=== PATIENT | male | born 1975 | race African-American/Black ===

== ENCOUNTER 2017-10-24 16:35 | Emergency (ER) | payer OTHER, SELFPAY ==
[~2017-10-24] VITALS: Ht 180.3 cm; Wt 81.6 kg
[~2017-10-24 16:35] MED LIST: ACYCLOVIR400 MG ORAL
[2017-10-24 16:56] VITALS: BP 111/73
[2017-10-24] MEDS ORDERED: DiphenhydrAMINE 50mg/ml Inj IVP ONE (17:00)
[2017-10-24] MEDS ORDERED: Metoclopramide 10mg/2ml Inj IVP ONE (17:00)
--- NOTE | 2017-10-24 17:05 | Emergency Room Report ---
History of Present Illness General Chief Complaint: Nausea, Vomiting, and Diarrhea Source: Patient, Medical Record Present Illness HPI The patient presents with 2 problems. One is a headache. The second one is nausea and vomiting for several days. He's not been able to eat anything for several days and is having trouble keeping down liquids. The pain in his head is 8/10 constant and pounding, not radiating. No change in vision. He denies RIVERA like this before. It's not the worst RIVERA he has had. Denies migraines. He was partying hard on his birthday [birth year]. He denies doing any more drugs since that time. It's been at least 3-4 days that he's felt ill. Denies any fevers or chills. He also has some epigastric pain. Denies coffee grounds or melena. He feels generalized weakness. No fevers, chills. No neck pain. No trauma. No extremity pain. He has rashes on arms and legs. He is HIV +. His compliance is questionable. He has had shingles in 2013. He had been admitted in 2007 for sepsis and testicular infection. Allergies: Coded Allergies: No Known Allergies (Verified Allergy, Mild, 03/12/07) Patient History Past Medical History: see triage record, old chart reviewed Social History: Reports: smoking, alcohol use, drug use Social History Narrative here with friend Reviewed Nursing Documentation: PMH: Agreed; PSxH: Agreed Nursing Documentation-PMH Past Medical History: No History, Except For Review of Systems All Other Systems: negative except mentioned in HPI Physical Exam Vital Signs Date Time Temp Pulse Resp B/P (MAP) Pulse Ox O2 Delivery O2 Flow Rate FiO2 10/24/17 16:42 98.3 100 18 111/73 100 Room Air 98.2 Sp02 EP Interpretation: reviewed, normal General Appearance: well appearing, no apparent distress, GCS 15 - slow in answering Head: normocephalic Eyes: bilateral eye normal inspection, bilateral eye PERRL ENT: moist mucus membranes - Poor dentition with damon Neck: supple Respiratory: lungs clear, normal breath sounds Cardiovascular #1: regular rate, rhythm Cardiovascular #2: 2+ radial (R) Gastrointestinal: normal inspection, normal bowel sounds, no mass, non- distended, no guarding, no rebound, tenderness, scaphoid Genitourinary: no CVA tenderness Musculoskeletal: back normal, gait/station normal, normal range of motion Neurologic: alert, oriented x3, motor strength/tone normal, DTRs symmetric, sensory intact, cerebellar normal, speech normal Psychiatric: mood/affect normal - But feels ill Skin: warm/dry, other - excoriations legs and arms Medical Decision Making Diagnostic Impression: Primary Impression: Nausea, vomiting, and diarrhea Additional Impression: Amphetamine abuse ER Course Patient presents with headache nausea and vomiting with inability to eat. Differential includes bleed, left right abnormality, migraine, viral syndrome, drug ingestion, dehydration, gastritis, pancreatitis amongst others. Evaluation will be with CT the head, chest x-ray, abdominal film, electrolytes and other labs. The patient will be treated with IV hydration, Reglan and Benadryl and Pepcid. Concern with h/o HIV and prior serious infections. EKG without injury. CXR no infiltrates. CT head no lesions. Labs with some renal insufficiency. + tox for amphetamines. Patient improved with observation and IV hydration. Eating and wants to go home. Denies SI or HI. Laboratory Tests Test 10/24/17 16:58 10/24/17 18:53 White Blood Count 5.2 K/UL (4.8-10.8) Red Blood Count 4.39 M/UL (4.70-6.10) L Hemoglobin 12.1 G/DL (14.2-18.0) L Hematocrit 37.4 % (42.0-52.0) L Mean Corpuscular Volume 85 FL (80-99) Mean Corpuscular Hemoglobin 27.4 PG (27.0-31.0) Mean Corpuscular Hemoglobin Concent 32.2 G/DL (32.0-36.0) Red Cell Distribution Width 12.9 % (11.6-14.8) Platelet Count 161 K/UL (150-450) Mean Platelet Volume 10.3 FL (6.5-10.1) H Neutrophils (%) (Auto) 64.7 % (45.0-75.0) Lymphocytes (%) (Auto) 25.8 % (20.0-45.0) Monocytes (%) (Auto) 8.9 % (1.0-10.0) Eosinophils (%) (Auto) 0.0 % (0.0-3.0) Basophils (%) (Auto) 0.6 % (0.0-2.0) Sodium Level 129 MMOL/L (136-145) L Potassium Level 3.5 MMOL/L (3.5-5.1) Chloride Level 98 MMOL/L (98-107) Carbon Dioxide Level 23 MMOL/L (21-32) Anion Gap 8 mmol/L (5-15) Blood Urea Nitrogen 12 mg/dL (7-18) Creatinine 1.5 MG/DL (0.55-1.30) H Estimate Glomerular Filtration Rate > 60 mL/min (>60) Glucose Level 108 MG/DL (74-106) H Calcium Level 8.4 MG/DL (8.5-10.1) L Total Bilirubin 0.3 MG/DL (0.2-1.0) Aspartate Amino Transferase (AST) 21 U/L (15-37) Alanine Aminotransferase (ALT) 25 U/L (12-78) Alkaline Phosphatase 56 U/L (46-116) Total Creatine Kinase 154 U/L (26-308) Total Protein 8.2 G/DL (6.4-8.2) Albumin 2.9 G/DL (3.4-5.0) L Globulin 5.3 g/dL Albumin/Globulin Ratio 0.5 (1.0-2.7) L Lipase 160 U/L (73-393) Salicylates Level 0.7 ug/mL (2.8-20) L Acetaminophen Level < 2 MCG/ML (10-30) L Serum Alcohol < 3 mg/dL Urine Color Yellow Urine Appearance Clear Urine pH 6 (4.5-8.0) Urine Specific [place] 1.010 (1.005-1.035) Urine Protein 3+ (NEGATIVE) H Urine Glucose (UA) Negative (NEGATIVE) Urine Ketones Negative (NEGATIVE) Urine Occult Blood Negative (NEGATIVE) Urine Nitrite Negative (NEGATIVE) Urine Bilirubin Negative (NEGATIVE) Urine Urobilinogen 1 MG/DL (0.0-1.0) H Urine Leukocyte Esterase 1+ (NEGATIVE) H Urine RBC 0-2 /HPF (0 - 0) H Urine WBC 0-2 /HPF (0 - 0) Urine Squamous Epithelial Cells Occasional /LPF Urine Bacteria None /HPF (NONE) Urine Opiates Screen Negative (NEGATIVE) Urine Barbiturates Screen Negative (NEGATIVE) Phencyclidine (PCP) Screen Negative (NEGATIVE) Urine Amphetamines Screen Positive (NEGATIVE) H Urine Benzodiazepines Screen Negative (NEGATIVE) Urine Cocaine Screen Negative (NEGATIVE) Urine Marijuana (THC) Screen Negative (NEGATIVE) EKG Diagnostic Results Rate: normal Rhythm: NSR ST Segments: no acute changes Rhythm Strip Diag. Results EP Interpretation: yes Rhythm: NSR, no PVC's, no ectopy Chest X-Ray Diagnostic Results Chest X-Ray Diagnostic Results : Chest X-Ray Ordered: Yes # of Views/Limited/Complete: 1 View Indication: Other EP Interpretation: Yes Interpretation: no consolidation, no effusion, no pneumothorax, other - escobar rods Impression: Other Electronically Signed by: Electronically signed by Rigoberto Reed MD CT/MRI/US Diagnostic Results CT/MRI/US Diagnostic Results : Imaging Test Ordered: head Impression no intracranial process - maxillary sinusitis L Last Vital Signs Date Time Temp Pulse Resp B/P (MAP) Pulse Ox O2 Delivery O2 Flow Rate FiO2 10/24/17 20:30 98.8 87 18 113/74 98 Room Air 98.8 Status: improved Disposition: HOME, SELF-CARE Condition: Improved Scripts Ondansetron Odt* (ZOFRAN ODT*) 4 Mg Tab.rapdis 4 MG BC EVERY 8 HOURS, #4 TAB 0 Refills Prov: Rigoberto Reed M.D. 10/24/17 Referrals: [facility],REFERRING (PCP) Rigoberto Reed M.D. Oct 24, 2017 17:05
[2017-10-24 17:32] LABS: BASOPHILS % (AUTO) 0.6 % (0.0-2.0); HEMATOCRIT 37.4 % (42.0-52.0); HEMOGLOBIN 12.1 G/DL (14.2-18.0); LYMPHOCYTES % (AUTO) 25.8 % (20.0-45.0); MEAN CORPUSCULAR VOLUME 85 FL (80-99); MONOCYTES % (AUTO) 8.9 % (1.0-10.0); NEUTROPHILS % (AUTO) 64.7 % (45.0-75.0); PLATELET COUNT 161 K/UL (150-450); RED BLOOD COUNT 4.39 M/UL (4.70-6.10); RED CELL DISTRIBUTION WIDTH 12.9 % (11.6-14.8); WHITE BLOOD COUNT 5.2 K/UL (4.8-10.8)
[2017-10-24 17:43] LABS: ANION GAP 8 mmol/L (5-15); BLOOD UREA NITROGEN 12 mg/dL (7-18); CALCIUM 8.4 MG/DL (8.5-10.1); CARBON DIOXIDE 23 MMOL/L (21-32); CHLORIDE 98 MMOL/L (98-107); CREATININE 1.5 MG/DL (0.55-1.30); POTASSIUM 3.5 MMOL/L (3.5-5.1); SODIUM 129 MMOL/L (136-145)
[2017-10-24 17:48] LABS: ALANINE AMINOTRANSFERASE 25 U/L (12-78); ALBUMIN 2.9 G/DL (3.4-5.0); ALBUMIN/GLOBULIN RATIO 0.5 (1.0-2.7); ALKALINE PHOSPHATASE 56 U/L (46-116); ASPARTATE AMINO TRANSFERASE 21 U/L (15-37); BILIRUBIN,TOTAL 0.3 MG/DL (0.2-1.0); CREATINE KINASE 154 U/L (26-308)
[2017-10-24 18:33] VITALS: BP 111/78
[2017-10-24 19:06] LABS: APPEARANCE,URINE CLEAR; BILIRUBIN, URINE NEGATIVE (NEGATIVE); GLUCOSE, URINE (UA) NEGATIVE (NEGATIVE); KETONES,URINE NEGATIVE (NEGATIVE); LEUKOCYTE ESTERASE ,URINE 1+ (NEGATIVE); NITRITE,URINE NEGATIVE (NEGATIVE); PH,URINE 6 (4.5-8.0); PROTEIN,URINE 3+ (NEGATIVE); UROBILINOGEN,URINE 1 MG/DL (0.0-1.0)
[2017-10-24 19:07] LABS: COLOR,URINE YELLOW
[2017-10-24 19:30] VITALS: BP 108/78
[2017-10-24] MEDS ORDERED: ONDANSETRON ODT4 MG BC (20:17)
[2017-10-24 20:30] VITALS: BP_SYST 108; BP_SYST 113; BP_DIAS 74; BP_DIAS 78
--- NOTE | 2017-10-25 09:38 | Diagnostic Imaging Report ---
Indication: Headache, altered level of consciousness Technique: Continuous helical CT scanning of the head was performed utilizing automated exposure control without intravenous contrast material. Axial and coronal reconstructions were obtained. Comparison: None CT dose: Total DLP 1467.41 mGycm; CTDI vol 70.38 mGy Findings: There is no acute intracranial hemorrhage, mass effect or cortical edema. The ventricles, cisterns and sulci are within normal limits for age. Visualized mastoid air cells are clear. There is opacification of the left maxillary sinus with mucosal thickening also noted in the right maxillary sinus and some ethmoid air cells. No focal lesions of the bony calvarium or soft tissues of the scalp are seen. IMPRESSION: No evidence of acute intracranial hemorrhage, mass effect or cortical edema. MRI may be obtained for more sensitive evaluation as clinically indicated. Significant paranasal sinus disease as above. This corresponds with the statrad preliminary report. The CT scanner at [facility] is accredited by the [employer] and the scans are performed using protocols designed to limit radiation exposure to as low as reasonably achievable to attain images of sufficient resolution adequate for diagnostic evaluation.
--- NOTE | 2017-10-25 10:29 | Diagnostic Imaging Report ---
Indication: Abdominal pain Technique: XRAY Chest 1v Comparison: 06/19/2007 Findings: Heart size and mediastinal contours within normal limits and stable compared to the prior exam. No focal airspace consolidation, pleural effusion or pneumothorax. Spinal fixation hardware is partially visualized. No acute osseous abnormality is identified. No evidence to suggest free air under the diaphragms. Impression: No radiographic evidence of acute cardiopulmonary disease.
--- NOTE | 2017-10-26 00:37 | Cardiology Report ---
APPROVED REPORT EKG Measurement Heart [id number] Normal sinus rhythm Normal ECG
== END 2017-10-24 20:30 | disposition home or self-care (01) ==
LOC: EMR 16:54
DX: R11.2 Nausea with vomiting, unspecified (principal); R19.7 Diarrhea, unspecified; F15.10 Other stimulant abuse, uncomplicated
CPT/HCPCS: 36415; 70450; 71045; 80053; 80307; 80329; 81003; 82550; 83690; 85025; 93005; 96361; 96374; 96375; 99284; J1200; J2765; S0028; 96360

== ENCOUNTER 2018-11-21 19:11 | Emergency (ER) | payer OTHER ==
[~2018-11-21] VITALS: Ht 190.5 cm; Wt 81.6 kg
[~2018-11-21 19:11] MED LIST changes: +ONDANSETRON ODT4 MG BC
--- NOTE | 2018-11-21 19:14 | NUR ---
ED Nurse Note: JOANA EDGAR RA 826 FROM HOME C/O FEVER AND CHILLS X3 DAYS. TEMP 100.5. AO4. NAD.
[2018-11-21] MEDS ORDERED: Cefepime HCl 2 GM in NS 110 ML IV SCH (19:30)
--- NOTE | 2018-11-21 19:30 | NUR ---
ED Nurse Note: IV ACCESS ESTABLISHED. BLOOD FLU SWAB AND URINE; SENT DOWN TO LAB. IMAGING AT BEDSIDE.
[2018-11-21 20:01] VITALS: BP 109/60
[2018-11-21 20:05] LABS: BASOPHILS % (AUTO) 0.7 % (0.0-2.0); HEMATOCRIT 43.1 % (42.0-52.0); HEMOGLOBIN 14.1 G/DL (14.2-18.0); LYMPHOCYTES % (AUTO) 13.9 % (20.0-45.0); MEAN CORPUSCULAR VOLUME 90 FL (80-99); MONOCYTES % (AUTO) 6.9 % (1.0-10.0); NEUTROPHILS % (AUTO) 78.6 % (45.0-75.0); PLATELET COUNT 155 K/UL (150-450); RED BLOOD COUNT 4.78 M/UL (4.70-6.10); RED CELL DISTRIBUTION WIDTH 12.8 % (11.6-14.8); WHITE BLOOD COUNT 15.6 K/UL (4.8-10.8)
[2018-11-21 20:15] LABS: ANION GAP 9 mmol/L (5-15); BLOOD UREA NITROGEN 17 mg/dL (7-18); CALCIUM 9.9 MG/DL (8.5-10.1); CARBON DIOXIDE 27 MMOL/L (21-32); CHLORIDE 101 MMOL/L (98-107); CREATININE 1.8 MG/DL (0.55-1.30); POTASSIUM 5.5 MMOL/L (3.5-5.1); SODIUM 136 MMOL/L (136-145)
[2018-11-21 20:29] LABS: ALANINE AMINOTRANSFERASE 42 U/L (12-78); ALBUMIN 3.5 G/DL (3.4-5.0); ALBUMIN/GLOBULIN RATIO 0.6 (1.0-2.7); ALKALINE PHOSPHATASE 64 U/L (46-116); ASPARTATE AMINO TRANSFERASE 68 U/L (15-37); BILIRUBIN,TOTAL 1.3 MG/DL (0.2-1.0); CKMB 2.2 NG/ML (0.0-3.6); CREATINE KINASE 1474 U/L (26-308)
[2018-11-21 20:37] LABS: BILIRUBIN,DIRECT 0.1 MG/DL (0.0-0.3)
--- NOTE | 2018-11-21 21:00 | NUR ---
ED Nurse Note: URINE MRSA VRE CRE SWAB COLLECTED; SENT DOWN TO LAB.
--- NOTE | 2018-11-21 21:07 | Emergency Room Report ---
History of Present Illness General Chief Complaint: Fever Source: Patient Present Illness HPI This patient has a history of HIV. He states that he is on his antiretrovirals. He did get lab work-up to include a viral load and a CD4 count last month, but he did not follow-up on the results. He states that he has had a fever, body aches and chills for the past 4 days. He admits to using drugs and popping heroin under his skin. He is also had dysuria. He denies chest pain or shortness of breath. He denies cough or congestion. He denies abdominal pain. He has no other complaints. Allergies: Coded Allergies: No Known Allergies (Verified , 03/12/07) Patient History Past Medical History: see triage record, HIV Social History: Reports: alcohol use, drug use; Denies: smoking Reviewed Nursing Documentation: PMH: Agreed; PSxH: Agreed Nursing Documentation-PMH Past Medical History: No History, Except For Review of Systems All Other Systems: negative except mentioned in HPI Physical Exam Vital Signs Date Time Temp Pulse Resp B/P (MAP) Pulse Ox O2 Delivery O2 Flow Rate FiO2 11/21/18 19:02 100.6 105 16 109/60 (76) 98 11/21/18 20:01 Room Air Sp02 EP Interpretation: reviewed, normal General Appearance: no apparent distress, alert, GCS 15, non-toxic Head: normocephalic, atraumatic Eyes: bilateral eye normal inspection, bilateral eye PERRL ENT: hearing grossly normal, normal pharynx, no angioedema, normal voice, other - poor dentition/rotting teeth. Neck: full range of motion, supple/symm/no masses Respiratory: chest non-tender, lungs clear, normal breath sounds, no respiratory distress, no retraction, no accessory muscle use, speaking full sentences Cardiovascular #1: regular rate, rhythm, no edema Gastrointestinal: normal bowel sounds, non tender, soft, non-distended, no guarding, no rebound Rectal: deferred Musculoskeletal: back normal, gait/station normal, normal range of motion, non- tender Neurologic: alert, oriented x3, responsive, motor strength/tone normal, sensory intact, speech normal Psychiatric: judgement/insight normal, memory normal, mood/affect normal, no suicidal/homicidal ideation Medical Decision Making Diagnostic Impression: Primary Impression: Fever Additional Impressions: Immunocompromised state PAM (acute kidney injury) ER Course This patient presents with fever. I am concerned for bacteremia. The patient has a history of IV drug abuse and popping under his skin. He also is cachectic and I am concerned that he is in AIDS. The patient was given broad- spectrum antibiotics, IV fluids and admitted for further evaluation and treatment. Laboratory Tests Test 11/21/18 19:45 11/21/18 21:00 White Blood Count 15.6 K/UL (4.8-10.8) H Red Blood Count 4.78 M/UL (4.70-6.10) Hemoglobin 14.1 G/DL (14.2-18.0) L Hematocrit 43.1 % (42.0-52.0) Mean Corpuscular Volume 90 FL (80-99) Mean Corpuscular Hemoglobin 29.6 PG (27.0-31.0) Mean Corpuscular Hemoglobin Concent 32.8 G/DL (32.0-36.0) Red Cell Distribution Width 12.8 % (11.6-14.8) Platelet Count 155 K/UL (150-450) Mean Platelet Volume 7.1 FL (6.5-10.1) Neutrophils (%) (Auto) 78.6 % (45.0-75.0) H Lymphocytes (%) (Auto) 13.9 % (20.0-45.0) L Monocytes (%) (Auto) 6.9 % (1.0-10.0) Eosinophils (%) (Auto) 0.0 % (0.0-3.0) Basophils (%) (Auto) 0.7 % (0.0-2.0) Sodium Level 136 MMOL/L (136-145) Potassium Level 5.5 MMOL/L (3.5-5.1) H Chloride Level 101 MMOL/L (98-107) Carbon Dioxide Level 27 MMOL/L (21-32) Anion Gap 9 mmol/L (5-15) Blood Urea Nitrogen 17 mg/dL (7-18) Creatinine 1.8 MG/DL (0.55-1.30) H Estimate Glomerular Filtration Rate 49.7 mL/min (>60) Glucose Level 108 MG/DL (74-106) H Lactic Acid Level 1.90 mmol/L (0.4-2.0) Calcium Level 9.9 MG/DL (8.5-10.1) Total Bilirubin 1.3 MG/DL (0.2-1.0) H Direct Bilirubin 0.1 MG/DL (0.0-0.3) Aspartate Amino Transferase (AST) 68 U/L (15-37) H Alanine Aminotransferase (ALT) 42 U/L (12-78) Alkaline Phosphatase 64 U/L (46-116) Total Creatine Kinase 1474 U/L (26-308) H Creatine Kinase MB 2.2 NG/ML (0.0-3.6) Creatine Kinase MB Relative Index 0.1 Troponin I 0.000 ng/mL (0.000-0.056) Total Protein 9.8 G/DL (6.4-8.2) H Albumin 3.5 G/DL (3.4-5.0) Globulin 6.3 g/dL Albumin/Globulin Ratio 0.6 (1.0-2.7) L Urine Color Pending Urine Appearance Pending Urine pH Pending Urine Specific [place] Pending Urine Protein Pending Urine Glucose (UA) Pending Urine Ketones Pending Urine Blood Pending Urine Nitrite Pending Urine Bilirubin Pending Urine Urobilinogen Pending Urine Leukocyte Esterase Pending Urine Opiates Screen Pending Urine Barbiturates Screen Pending Phencyclidine (PCP) Screen Pending Urine Amphetamines Screen Pending Urine Benzodiazepines Screen Pending Urine Cocaine Screen Pending Urine Marijuana (THC) Screen Pending Microbiology Date/Time Source Procedure Growth Status 11/21/18 19:45 Nasal Nares - Final Complete 11/21/18 19:45 Nasal Nares - Final Complete EKG Diagnostic Results Rate: tachycardiac Rhythm: other - S.tachycardia ST Segments: no acute changes Rhythm Strip Diag. Results EP Interpretation: yes Rate: 100's Rhythm: no PVC's, no ectopy, other - S.tachycardia Chest X-Ray Diagnostic Results Chest X-Ray Diagnostic Results : Chest X-Ray Ordered: Yes # of Views/Limited/Complete: 1 View Indication: Other EP Interpretation: Yes Interpretation: no consolidation, no effusion, no pneumothorax, no acute cardiopulmonary disease Impression: No acute disease Electronically Signed by: Felisa Juarez DO Last Vital Signs Date Time Temp Pulse Resp B/P (MAP) Pulse Ox O2 Delivery O2 Flow Rate FiO2 11/21/18 20:01 100.6 98 16 109/60 98 11/21/18 20:01 Room Air Disposition: ADMITTED INPATIENT Condition: Stable Felisa Juarez DO Nov 21, 2018 21:07
[2018-11-21 21:09] VITALS: BP 109/70
[2018-11-21 21:23] LABS: APPEARANCE,URINE SLIGHTLY CLOUDY; BILIRUBIN, URINE NEGATIVE (NEGATIVE); GLUCOSE, URINE (UA) NEGATIVE (NEGATIVE); KETONES,URINE NEGATIVE (NEGATIVE); LEUKOCYTE ESTERASE ,URINE 3+ (NEGATIVE); NITRITE,URINE POSITIVE (NEGATIVE); PH,URINE 6.5 (4.5-8.0); PROTEIN,URINE 2+ (NEGATIVE); UROBILINOGEN,URINE 4 MG/DL (0.0-1.0)
[2018-11-21 21:25] LABS: COLOR,URINE YELLOW
--- NOTE | 2018-11-21 22:22 | NUR ---
ED Nurse Note: report given to nathaniel choi of [facility]. patient to be admitted to [address] under the care of md inocencio.
[2018-11-21 22:35] VITALS: BP 116/67
[2018-11-21 23:50] VITALS: BP 119/70
--- NOTE | 2018-11-21 23:50 | NUR ---
ED Nurse Note: report given to ems. patient left with [facility] with all belongings. ao4. nad. vss.
--- NOTE | 2018-11-22 13:22 | Cardiology Report ---
APPROVED REPORT EKG Measurement Heart [id number] Sinus tachycardia Otherwise normal ECG
--- NOTE | 2018-11-22 13:22 | Diagnostic Imaging Report ---
Indication: Chest pain Technique: One view of the chest Comparison: 10/24/2017 Findings: Lungs and pleural spaces are clear. Heart size is normal. There is thoracolumbar spinal fusion hardware again demonstrated. No significant interim change Impression: No acute process
== END 2018-11-21 23:50 | disposition short-term general hospital (02) ==
LOC: EDBD 19:11 → EMR 21:10
DX: R50.9 Fever, unspecified (principal); N17.9 Acute kidney failure, unspecified; R64 Cachexia
CPT/HCPCS: 36415; 71045; 80053; 80307; 81003; 82248; 82550; 82553; 83605; 84484; 85025; 86710; 87040; 87086; 93005; 96365; 96366; 99285